=== PATIENT | male | born 1945 | race Caucasian/White ===

== ENCOUNTER 2024-04-06 13:27 | Emergency (ER) | payer MEDICARE ==
[2024-04-06] MEDS ORDERED: HYDROcodone/Acetaminophen 5/325 mg Tablet ONE (14:03)
[2024-04-06] MEDS ORDERED: Lidocaine 1% w/Epinephrine 1:100K 20 ML VIAL ONE (14:03)
[2024-04-06] MEDS ORDERED: Boostrix 0.5 ML (Tdap) VIAL (>/=7 yrs of age) ONE (14:03)
[2024-04-06] MEDS ORDERED: Bacitracin 1 PK ONE (15:32)
== END 2024-04-06 16:05 | disposition home or self-care (01) ==
LOC: ERS 13:27
DX: S01.01XA Laceration without foreign body of scalp, initial encounter (principal); S51.812A Laceration without foreign body of left forearm, initial encounter; M25.512 Pain in left shoulder; J44.9 Chronic obstructive pulmonary disease, unspecified; G20.A1 Parkinson's disease without dyskinesia, without mention of fluctuations; W19.XXXA Unspecified fall, initial encounter; Z87.891 Personal history of nicotine dependence
CPT/HCPCS: 12001; 70450; 72125; 72128; 90471; 90715

== ENCOUNTER 2024-04-14 14:15 | Emergency (ER) | payer MEDICARE | END 2024-04-14 14:29 | disposition home or self-care (01) | LOC: ERS 14:15 | DX: T14.8XXD Other injury of unspecified body region, subsequent encounter (principal); Z48.02 Encounter for removal of sutures; W19.XXXD Unspecified fall, subsequent encounter ==